=== PATIENT | male | born 1970 | race Caucasian/White ===

== ENCOUNTER 2018-09-06 13:35 | Emergency (ER) | payer OTHER ==
[2018-09-06] MEDS ORDERED: Ketorolac 60 MG/2 ML SDV IM ONE (14:09)
[2018-09-06] MEDS ORDERED: Acetaminophen/HYDROcodone 325-10 MG Tab PO ONE (14:10)
--- NOTE | 2018-09-06 14:12 | EDM.PDOC ---
ED HPI GENERAL MEDICAL PROBLEM - General Chief Complaint: Back Pain or Injury Stated Complaint: BACK PAIN Time Seen by Provider: 09/06/18 14:08 - History of Present Illness INITIAL COMMENTS - FREE TEXT/NARRATIVE: HISTORY AND PHYSICAL: History of present illness: Past 47-year-old male who presents with recent fall from a ladder height of approximately 3-4 feet onto his right back he said pain subsequent that is worsening over last 24 hours he denies numbness weakness has had no incontinence or retention of bowel or bladder. He denies any head or neck pain or trauma or other concern Review of systems: As per history of present illness and below otherwise all systems reviewed and negative. Past medical history: As per history of present illness and as reviewed below otherwise noncontributory. Surgical history: As per history of present illness and as reviewed below otherwise noncontributory. Social history: No reported history of drug or alcohol abuse. Family history: As per history of present illness and as reviewed below otherwise noncontributory. Physical exam: HEENT: Atraumatic, normocephalic, pupils reactive, negative for conjunctival pallor or scleral icterus, mucous membranes moist, throat clear, neck supple, nontender, trachea midline. Lungs: Clear to auscultation, breath sounds equal bilaterally, chest nontender. Heart: S1S2, regular, negative for clicks, rubs, or JVD. Abdomen: Soft, nondistended, nontender. Negative for masses or hepatosplenomegaly. Negative for costovertebral tenderness. Pelvis: Stable nontender. Genitourinary: Deferred. Rectal: Deferred. Extremities: Atraumatic, negative for cords or calf pain. Neurovascular unremarkable. Neuro: Awake, alert, oriented. Cranial nerves II through XII unremarkable. Cerebellum unremarkable. Motor and sensory unremarkable throughout. Exam nonfocal. Back: Paravertebral tenderness at the level of lumbar spine vertebral body or point tenderness motor and sensory are normal patient able stand on his toe back on his heels Diagnostics: X-ray lumbar spine Therapeutics: Toradol 60 mg IM hydrocodone 10 mg by mouth Impression: #1 lumbosacral strain/contusion Definitive disposition and diagnosis as appropriate pending reevaluation and review of above. Back Pain Score (Numeric/FACES): 7 - Related Data Allergies Allergy/AdvReac Type Severity Reaction Status Date / Time No Known Allergies Allergy Verified 09/06/18 13:47 Home Meds: Home Meds . 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 Social & Family History - Family History Family Medical History: Noncontributory - Tobacco Use Smoking Status *Q: Current Every Day Smoker Years of Tobacco use: 20 Packs/Tins Daily: 1 - Caffeine Use Caffeine Use: Reports: Coffee - Recreational Drug Use Recreational Drug Use: No ED ROS GENERAL - Review of Systems Review Of Systems: ROS reveals no pertinent complaints other than HPI. ED EXAM, GENERAL - Physical Exam Exam: See Below (See dictation) Course - Vital Signs Last Recorded V/S: Last Vital Signs Temp 37.2 C 09/06/18 13:47 Pulse 84 09/06/18 13:47 Resp 15 09/06/18 13:47 BP 121/74 09/06/18 13:47 Pulse Ox 98 09/06/18 13:47 - Orders/Labs/Meds Orders: Active Orders 24 hr Category Date Time Status Lumbar Spine 2 or 3V [CR] Stat Exams 09/06/18 14:09 Ordered Acetaminophen/HYDROcodone [Tea 325-10 MG] Med 09/06/18 14:10 Once 1 tab PO ONETIME ONE Medication Orders Hydrocodone Bitart/Acetaminophen (Tea 325-10 Mg) 1 tab PO ONETIME ONE Stop: 09/06/18 14:11 Meds: Medications Generic Name Dose Route Start Last Admin Trade Name Freq PRN Reason Stop Dose Admin Hydrocodone Bitart/Acetaminophen 1 tab 09/06/18 14:10 Tea 325-10 Mg PO 09/06/18 14:11 ONETIME ONE Discontinued Medications Generic Name Dose Route Start Last Admin Trade Name Freq PRN Reason Stop Dose Admin Ketorolac Tromethamine 60 mg 09/06/18 14:09 Toradol IM 09/06/18 14:10 ONETIME ONE Departure - Departure Time of Disposition: 14:12 Disposition: Home, Self-Care 01 Condition: Good Clinical Impression: Lumbar strain, Contusion - Discharge Information Referrals: PCP,None [Primary Care Provider] - Additional Instructions: The following information is given to patients seen in the emergency department who are being discharged to home. This information is to outline your options for follow-up care. We provide all patients seen in our emergency department with a follow-up referral. The need for follow-up, as well as the timing and circumstances, are variable depending upon the specifics of your emergency department visit. If you don't have a primary care physician on staff, we will provide you with a referral. We always advise you to contact your personal physician following an emergency department visit to inform them of the circumstance of the visit and for follow-up with them and/or the need for any referrals to a consulting specialist. The emergency department will also refer you to a specialist when appropriate. This referral assures that you have the opportunity for followup care with a specialist. All of these measure are taken in an effort to provide you with optimal care, which includes your followup. Under all circumstances we always encourage you to contact your private physician who remains a resource for coordinating your care. When calling for followup care, please make the office aware that this follow-up is from your recent emergency room visit. If for any reason you are refused follow-up, please contact the [facility] emergency department at and asked to speak to the emergency department charge nurse. Ultram Flexeril as prescribed follow-up occupational medicine return as needed as discussed - My Orders Last 24 Hours: My Active Orders 09/06/18 14:09 Lumbar Spine 2 or 3V [CR] Stat 09/06/18 14:10 Acetaminophen/HYDROcodone [Tea 325-10 MG] 1 tab PO ONETIME ONE - Assessment/Plan Last 24 Hours: My Active Orders 09/06/18 14:09 Lumbar Spine 2 or 3V [CR] Stat 09/06/18 14:10 Acetaminophen/HYDROcodone [Tea 325-10 MG] 1 tab PO ONETIME ONE
--- NOTE | 2018-09-06 15:04 | CR ---
INDICATION: Low back pain after fall 2 days ago TECHNIQUE: Lumbar spine 3 view. COMPARISON: None FINDINGS: Bones: Mild S-shaped scoliosis. No fractures or significant bone lesions. Joints: Mild multilevel degenerative disc and facet changes. Soft tissues: Large amount of feces in the colon. IMPRESSION: No acute abnormality. Large amount of feces in the colon. Dictated by Monika Vega MD @ Sep 06 2018 3:00PM Signed by Dr. Monika Vega @ Sep 06 2018 3:03PM
== END 2018-09-06 15:40 | disposition home or self-care (01) ==
LOC: MW.ED 13:35
DX: S39.012A Strain of muscle, fascia and tendon of lower back, initial encounter (principal); F17.210 Nicotine dependence, cigarettes, uncomplicated; W11.XXXA Fall on and from ladder, initial encounter
CPT/HCPCS: 72100; 96372; 99283; A9270; J1885